=== PATIENT | female | born 1975 | race Caucasian/White ===

== ENCOUNTER 2017-12-29 19:01 | Observation (INO) ==
[2017-12-29] MEDS ORDERED: 0.9 % Sodium Chloride 1,000 ML IVC ONE (19:51)
[2017-12-29] MEDS ORDERED: Ondansetron 4 MG/2 ML VIAL IVP ONE (19:51)
[2017-12-29] MEDS ORDERED: *HR* FentaNYL (PF) 100 MCG/2 ML VIAL IVP ONE (19:52)
[2017-12-29 20:05] LABS: Bilirubin,Urine Negative (Negative); Blood,Urine Moderate (Negative); Clarity,Urine Cloudy (Clear); Color,Urine Yellow (Yellow); Glucose,Urine (UA) Normal (Normal); Ketones,Urine Negative (Negative); Leukocyte Esterase,Urine Large (Negative); Nitrite,Urine Positive (Negative); Protein,Urine 100 mg/dL (Neg-Trace); Specific Gravity,Urine 1.015 (1.010-1.025); Urobilinogen,Urine Normal (Normal)
[2017-12-29 20:07] LABS: Bacteria,Urine Moderate per hpf (None-Few); Hyaline Casts,Urine None Seen per lpf (None-Few); Squamous Epithelial Cell,Urine Many per lpf (None-Few); WBC,Urine TNTC per hpf (0-3)
[2017-12-29 20:22] LABS: Calcium Oxalate Crystals,Urine Present
--- NOTE | 2017-12-29 20:47 | Emergency Department Note ---
Disposition Clinical Impression: Kidney stones UTI (urinary tract infection) Qualifiers: Urinary tract infection type: site unspecified Hematuria presence: with hematuria Qualified Code(s): N39.0 - Urinary tract infection, site not specified ; R31.9 - Hematuria, unspecified Disposition: Admitted As Inpatient Condition: Fair Referrals: Kathy Robles, [employer] SERVICE ATTENDANT [Primary Care Provider] - Forms: ED Satisfaction Letter, Work/School Release Time of Disposition: 00:20 General Adult HPI - General Chief complaint: ED Abdominal Pain Stated complaint: "UTI, kidney stone", pain Time Seen by Provider: 12/29/17 19:30 Source: patient Limitations: no limitations Nursing Notes Reviewed: Yes Vital Signs Reviewed: Yes - History of Present Illness HPI Narrative: Patient is a 42-year-old female who presents to [facility] ED with a chief complaint of back pain. States it came on acutely around 6:30 this evening. She has had 2 month history of kidney stones. However because of her chronic condition of her hips and legs being calcified, they have not wanted to remove any of her stones. She follows with Dr. Tamez and was just seen in his office today. However at that time, she states her pain was controlled. Patient states the pain currently is in tolerable. Admits to nausea, no vomiting, no fever but has had chills. No chest pain or difficulty breathing. No problems with bowel movements. Patient has a chronic catheter for urine drainage. States Dr. Tamez wanted to start her on Bactrim to prevent her from getting a worsening urinary tract infection. Onset (ago): hour(s) Location: back Radiation: non-radiation Pain Severity: severe Pain Scale: 8 Quality: aching Consistency: intermittent Improves with: nothing Worsens with: nothing Associated symptoms: Reports: nausea/vomiting. Denies: chest pain, cough, fever /chills, headaches, shortness of breath Treatments Prior to Arrival: none - Related Data Home Medications Medication Instructions Recorded Confirmed Baclofen 20 mg PO TID 01/05/16 01/05/16 Famotidine [Pepcid] 20 mg PO DAILY PRN 01/05/16 01/05/16 FentaNYL PATCH [Duragesic] 100 mcg TD Q72H 01/05/16 01/05/16 Ferrous Sulfate [Iron] 325 mg PO BID 01/05/16 01/05/16 Gabapentin [Neurontin] 100 mg PO TID 01/05/16 01/05/16 HYDROmorphone [Dilaudid] 4 mg PO Q5H 01/05/16 01/05/16 LORazepam [Ativan] 1 mg PO QID PRN 01/05/16 01/05/16 Ondansetron [Zofran] 4 mg PO Q6H PRN 01/05/16 01/05/16 Paroxetine [Paxil] 30 mg PO DAILY 01/05/16 01/05/16 Tizanidine HCl [Zanaflex] 4 mg PO TID 01/05/16 01/05/16 Trospium Chloride 20 mg PO DAILY 01/05/16 01/05/16 Allergies Allergy/AdvReac Type Severity Reaction Status Date / Time ceftriaxone [From Rocephin] AdvReac Itching Verified 12/29/17 19:07 All systems ED: reviewed and negative except as stated. Past Medical History - Past Medical History Attestation: Yes The following information was validated with the patient. Source: patient Medical history: Reports: other Surgical history: Reports: other Psychiatric history: Reports: anxiety, depression - Social History Smoking Status: Never smoker Smokeless Tobacco Status: No Alcohol use: Reports: none Drug use: Reports: none Physical Exam - General Limitations: no limitations General appearance: alert - Head Head exam: atraumatic, normocephalic, normal inspection - Eye Eye exam: Present: EOMI - ENT ENT exam: normal exam, normal oropharynx, mucous membranes moist - Neck Neck exam: Present: normal inspection, full ROM, trachea midline - Chest Chest inspection: Present: normal inspection, symmetric chest wall rise - Respiratory Respiratory exam: Present: normal lung sounds bilaterally - Cardiovascular Cardiovascular exam: Present: regular rate, normal rhythm, normal heart sounds - Abdominal Exam Abdominal exam: Present: soft, Non-Tender. Absent: tenderness, distention, guarding, rebound, rigidity - Extremities Exam Extremities exam: Present: normal inspection, full ROM. Absent: tenderness, pedal edema - Back Exam Back exam: Present: tenderness - Neurological Exam Neurological exam: Present: alert - Psychiatric Psychiatric exam: Present: normal affect, normal mood - Skin Skin exam: Present: warm, dry, intact, normal color Course Course Narrative: Patient seen and examined. Suspect lower back pain secondary to renal colic. With her history of stones, we will go ahead and do a CT abdomen and pelvis as well as lab work and urine analysis. I discussed with the urologist Dr. Tamez who states patient has a very complicated case with her burden of stones. However due to her medical physical condition, it is difficult to do surgery on her. States if she is having intractable pain or if her lab work shows she is very sick, she can get her admitted and he will have interventional radiology place a nephrostomy tube tomorrow. - Reevaluation(s) Reevaluation #1: Patient's lab work shows a mild leukocytosis as well as signs of a possible urinary tract infection. We will cover her with some Levaquin. Dr. Tamez called the back to discuss the results of her CAT scan. States she has large stone burden near the renal pelvis area near the junction of the ureter and he suspects that this may be the cause of her renal colic. I discussed these findings with the patient and patient would like to be admitted due to the persistent intermittent pains. I discussed with the hospitalist Dr. Fuller who has accepted patient for admission. Time: 00:17 Vital Signs Temperature 98.4 F 12/29/17 19:08 Pulse Rate 75 12/29/17 19:08 Respiratory Rate 20 12/29/17 19:08 Blood Pressure 109/68 12/29/17 19:08 O2 Sat by Pulse Oximetry 94 12/29/17 19:08 Temperature 98.4 F 12/29/17 19:36 Pulse Rate 105 12/29/17 21:56 Respiratory Rate 16 12/29/17 21:56 Blood Pressure 118/73 12/29/17 21:56 O2 Sat by Pulse Oximetry 100 12/29/17 21:56 Oxygen Delivery Oxygen Delivery Room Air Medical Decision Making - Medical Records Medical records reviewed: Yes I reviewed the patient's medical records. - Lab Data Lab results reviewed: Yes I reviewed the patient's lab results. Result diagrams: 12/29/17 20:52 12/29/17 20:52 Lab Results 12/29/17 12/29/17 12/29/17 Range/Units 19:48 19:48 20:52 WBC 12.0 H (4.3-11.1) K/mcL RBC 3.45 L (3.82-4.97) M/mcL Hgb 9.9 L (11.5-15.4) g/dL Hct 29.6 L (35.3-44.9) % MCV 85.8 (83.0-100.0) fL MCH 28.7 (28.0-33.3) pg MCHC 33.4 (31.6-35.5) g/dL RDW 14.0 (11.5-14.5) % Plt Count 392 (140-400) K/mcL MPV 8.6 L (9.4-12.4) fL Immature Gran % 0.4 (0-4) % Seg Neutrophils % 81.7 % Lymphocytes % 12.6 % Monocytes % 3.7 % Eosinophils % 0.8 % Basophils % 0.8 % Neutrophils # 9.8 H (1.6-8.9) K/mcL Lymphocytes # 1.5 (0.6-4.6) K/mcL Monocytes # 0.4 (0.0-1.3) K/mcL Eosinophils # 0.1 (0.0-0.6) K/mcL Basophils # 0.1 (0.0-0.2) K/mcL Sodium (136-145) mEq/L Potassium (3.5-5.1) mEq/L Chloride (98-107) mEq/L Carbon Dioxide (23-29) mEq/L BUN (6-20) mg/dL Creatinine (0.60-1.20) mg/dL Est GFR ( Amer) (> 60) Est GFR (Non-Af Amer) (> 60) BUN/Creatinine Ratio (6-26) Glucose (70-105) mg/dL Calculated Osmolality (280-300) Lactic Acid (0.5-2.2) mmol/L Calcium (8.6-10.3) mg/dL Urine Color Yellow (Yellow) Urine Clarity Cloudy A (Clear) Urine pH 6.0 (5.0-8.0) pH Units Ur Specific [place] 1.015 (1.010-1.025) Urine Protein 100 H (Neg-Trace) mg/dL Urine Glucose (UA) Normal (Normal) mg/dL Urine Ketones Negative (Negative) mg/dL Urine Blood Moderate H (Negative) Urine Nitrite Positive A (Negative) Urine Bilirubin Negative (Negative) Urine Urobilinogen Normal (Normal) mg/dL Ur Leukocyte Esterase Large H (Negative) Urine Microscopic RBC 5-15 H (0-3) per hpf Urine Microscopic WBC TNTC H (0-3) per hpf Ur Squamous Epith Cells Many H (None-Few) per lpf Calcium Oxalate Crystal Present Urine Bacteria Moderate H (None-Few) per hpf Hyaline Casts None Seen (None-Few) per lpf Ur Culture Indicated? NO. A (NO) Urine Test Negative (Negative) 12/29/17 12/29/17 Range/Units 20:52 20:52 WBC (4.3-11.1) K/mcL RBC (3.82-4.97) M/mcL Hgb (11.5-15.4) g/dL Hct (35.3-44.9) % MCV (83.0-100.0) fL MCH (28.0-33.3) pg MCHC (31.6-35.5) g/dL RDW (11.5-14.5) % Plt Count (140-400) K/mcL MPV (9.4-12.4) fL Immature Gran % (0-4) % Seg Neutrophils % % Lymphocytes % % Monocytes % % Eosinophils % % Basophils % % Neutrophils # (1.6-8.9) K/mcL Lymphocytes # (0.6-4.6) K/mcL Monocytes # (0.0-1.3) K/mcL Eosinophils # (0.0-0.6) K/mcL Basophils # (0.0-0.2) K/mcL Sodium 137 (136-145) mEq/L Potassium 3.8 (3.5-5.1) mEq/L Chloride 103 (98-107) mEq/L Carbon Dioxide 25 (23-29) mEq/L BUN 19 (6-20) mg/dL Creatinine 0.57 L (0.60-1.20) mg/dL Est GFR ( Amer) > 60 (> 60) Est GFR (Non-Af Amer) > 60 (> 60) BUN/Creatinine Ratio 33 H (6-26) Glucose 147 H (70-105) mg/dL Calculated Osmolality 289 (280-300) Lactic Acid 1.8 (0.5-2.2) mmol/L Calcium 8.7 (8.6-10.3) mg/dL Urine Color (Yellow) Urine Clarity (Clear) Urine pH (5.0-8.0) pH Units Ur Specific [place] (1.010-1.025) Urine Protein (Neg-Trace) mg/dL Urine Glucose (UA) (Normal) mg/dL Urine Ketones (Negative) mg/dL Urine Blood (Negative) Urine Nitrite (Negative) Urine Bilirubin (Negative) Urine Urobilinogen (Normal) mg/dL Ur Leukocyte Esterase (Negative) Urine Microscopic RBC (0-3) per hpf Urine Microscopic WBC (0-3) per hpf Ur Squamous Epith Cells (None-Few) per lpf Calcium Oxalate Crystal Urine Bacteria (None-Few) per hpf Hyaline Casts (None-Few) per lpf Ur Culture Indicated? (NO) Urine Test (Negative) - Radiology Data Radiology results reviewed: Yes I reviewed the patient's radiology results. Abdomen/Pelvis CT 12/29/17 19:52 IMPRESSION: 1. Numerous calculi in the right renal collecting system, some which appear to have passed into the bladder; the appearance of the right renal collecting system is suspicious for staghorn calculus. 2. There is evidence of rectal prolapse. 3. Imaging features suspicious for the decubitus ulcer with chronic osteomyelitis of the sacrum, left ilium, and likely the right ilium. If it would alter clinical management, a dedicated pelvic MRI with and without contrast could be obtained. D/ / Dawson Pat / Dawson Pat Interpreting Provider: Dawson Pat
[2017-12-29 21:04] LABS: Basophils # 0.1 K/mcL (0.0-0.2); Basophils % 0.8 %; Eosinophils # 0.1 K/mcL (0.0-0.6); Eosinophils % 0.8 %; Hematocrit 29.6 % (35.3-44.9); Hemoglobin 9.9 g/dL (11.5-15.4); Immature Granulocytes % 0.4 % (0-4); Lymphocytes # 1.5 K/mcL (0.6-4.6); Lymphocytes % 12.6 %; Mean Corpuscular HGB Conc 33.4 g/dL (31.6-35.5); Mean Corpuscular Hemoglobin 28.7 pg (28.0-33.3); Mean Corpuscular Volume 85.8 fL (83.0-100.0); Mean Platelet Volume 8.6 fL (9.4-12.4); Monocytes # 0.4 K/mcL (0.0-1.3); Monocytes % 3.7 %; Neutrophils # 9.8 K/mcL (1.6-8.9); Platelet Count 392 K/mcL (140-400); Red Blood Count 3.45 M/mcL (3.82-4.97); Segmented Neutrophils % 81.7 %
[2017-12-29 21:18] LABS: BUN/Creatinine Ratio 33 (6-26); Blood Urea Nitrogen 19 mg/dL (6-20); Calcium 8.7 mg/dL (8.6-10.3); Carbon Dioxide 25 mEq/L (23-29); Chloride 103 mEq/L (98-107); Glucose 147 mg/dL (70-105); Osmolality,Calculated 289 (280-300); Potassium 3.8 mEq/L (3.5-5.1); Sodium 137 mEq/L (136-145); eGFR For Non-African Americans > 60 (> 60)
[2017-12-29] MEDS ORDERED: tiZANidine 4 MG TABLET PO STA (22:42)
[2017-12-29] MEDS ORDERED: Levofloxacin 750 MG/150 ML 750 MG/150 ML BAG IVPB ONE (22:56)
--- NOTE | 2017-12-29 23:27 | Emergency Department Note ---
Disposition Clinical Impression: Kidney stones, UTI (urinary tract infection) Disposition: Admitted As Inpatient Condition: Fair General Adult HPI - General Chief complaint: ED Abdominal Pain Stated complaint: "UTI, kidney stone", pain Time Seen by Provider: 12/29/17 19:30 Source: patient Limitations: no limitations Nursing Notes Reviewed: Yes Vital Signs Reviewed: Yes - History of Present Illness Pain Scale: 8 - Related Data Home Medications Medication Instructions Recorded Confirmed Baclofen 20 mg PO TID 01/05/16 01/05/16 Famotidine [Pepcid] 20 mg PO DAILY PRN 01/05/16 01/05/16 FentaNYL PATCH [Duragesic] 100 mcg TD Q72H 01/05/16 01/05/16 Ferrous Sulfate [Iron] 325 mg PO BID 01/05/16 01/05/16 Gabapentin [Neurontin] 100 mg PO TID 01/05/16 01/05/16 HYDROmorphone [Dilaudid] 4 mg PO Q5H 01/05/16 01/05/16 LORazepam [Ativan] 1 mg PO QID PRN 01/05/16 01/05/16 Ondansetron [Zofran] 4 mg PO Q6H PRN 01/05/16 01/05/16 Paroxetine [Paxil] 30 mg PO DAILY 01/05/16 01/05/16 Tizanidine HCl [Zanaflex] 4 mg PO TID 01/05/16 01/05/16 Trospium Chloride 20 mg PO DAILY 01/05/16 01/05/16 Allergies Allergy/AdvReac Type Severity Reaction Status Date / Time ceftriaxone [From Rocephin] AdvReac Itching Verified 12/29/17 19:07 Past Medical History - Past Medical History Medical history: Reports: other Surgical history: Reports: other Psychiatric history: Reports: anxiety, depression - Social History Smoking Status: Never smoker Smokeless Tobacco Status: No Alcohol use: Reports: none Drug use: Reports: none Physical Exam - General Limitations: no limitations General appearance: alert Course Vital Signs Temperature 98.4 F 12/29/17 19:08 Pulse Rate 75 12/29/17 19:08 Respiratory Rate 20 12/29/17 19:08 Blood Pressure 109/68 12/29/17 19:08 O2 Sat by Pulse Oximetry 94 12/29/17 19:08 Temperature 98.4 F 12/29/17 19:36 Pulse Rate 105 12/29/17 21:56 Respiratory Rate 16 12/29/17 21:56 Blood Pressure 118/73 12/29/17 21:56 O2 Sat by Pulse Oximetry 100 12/29/17 21:56 Oxygen Delivery Oxygen Delivery Room Air Medical Decision Making - Medical Records Medical records reviewed: Yes I reviewed the patient's medical records. - Lab Data Lab results reviewed: Yes I reviewed the patient's lab results. Result diagrams: 12/29/17 20:52 12/29/17 20:52 Lab Results 12/29/17 12/29/17 12/29/17 Range/Units 19:48 19:48 20:52 WBC 12.0 H (4.3-11.1) K/mcL RBC 3.45 L (3.82-4.97) M/mcL Hgb 9.9 L (11.5-15.4) g/dL Hct 29.6 L (35.3-44.9) % MCV 85.8 (83.0-100.0) fL MCH 28.7 (28.0-33.3) pg MCHC 33.4 (31.6-35.5) g/dL RDW 14.0 (11.5-14.5) % Plt Count 392 (140-400) K/mcL MPV 8.6 L (9.4-12.4) fL Immature Gran % 0.4 (0-4) % Seg Neutrophils % 81.7 % Lymphocytes % 12.6 % Monocytes % 3.7 % Eosinophils % 0.8 % Basophils % 0.8 % Neutrophils # 9.8 H (1.6-8.9) K/mcL Lymphocytes # 1.5 (0.6-4.6) K/mcL Monocytes # 0.4 (0.0-1.3) K/mcL Eosinophils # 0.1 (0.0-0.6) K/mcL Basophils # 0.1 (0.0-0.2) K/mcL Sodium (136-145) mEq/L Potassium (3.5-5.1) mEq/L Chloride (98-107) mEq/L Carbon Dioxide (23-29) mEq/L BUN (6-20) mg/dL Creatinine (0.60-1.20) mg/dL Est GFR ( Amer) (> 60) Est GFR (Non-Af Amer) (> 60) BUN/Creatinine Ratio (6-26) Glucose (70-105) mg/dL Calculated Osmolality (280-300) Lactic Acid (0.5-2.2) mmol/L Calcium (8.6-10.3) mg/dL Urine Color Yellow (Yellow) Urine Clarity Cloudy A (Clear) Urine pH 6.0 (5.0-8.0) pH Units Ur Specific [place] 1.015 (1.010-1.025) Urine Protein 100 H (Neg-Trace) mg/dL Urine Glucose (UA) Normal (Normal) mg/dL Urine Ketones Negative (Negative) mg/dL Urine Blood Moderate H (Negative) Urine Nitrite Positive A (Negative) Urine Bilirubin Negative (Negative) Urine Urobilinogen Normal (Normal) mg/dL Ur Leukocyte Esterase Large H (Negative) Urine Microscopic RBC 5-15 H (0-3) per hpf Urine Microscopic WBC TNTC H (0-3) per hpf Ur Squamous Epith Cells Many H (None-Few) per lpf Calcium Oxalate Crystal Present Urine Bacteria Moderate H (None-Few) per hpf Hyaline Casts None Seen (None-Few) per lpf Ur Culture Indicated? NO. A (NO) Urine Test Negative (Negative) 12/29/17 12/29/17 Range/Units 20:52 20:52 WBC (4.3-11.1) K/mcL RBC (3.82-4.97) M/mcL Hgb (11.5-15.4) g/dL Hct (35.3-44.9) % MCV (83.0-100.0) fL MCH (28.0-33.3) pg MCHC (31.6-35.5) g/dL RDW (11.5-14.5) % Plt Count (140-400) K/mcL MPV (9.4-12.4) fL Immature Gran % (0-4) % Seg Neutrophils % % Lymphocytes % % Monocytes % % Eosinophils % % Basophils % % Neutrophils # (1.6-8.9) K/mcL Lymphocytes # (0.6-4.6) K/mcL Monocytes # (0.0-1.3) K/mcL Eosinophils # (0.0-0.6) K/mcL Basophils # (0.0-0.2) K/mcL Sodium 137 (136-145) mEq/L Potassium 3.8 (3.5-5.1) mEq/L Chloride 103 (98-107) mEq/L Carbon Dioxide 25 (23-29) mEq/L BUN 19 (6-20) mg/dL Creatinine 0.57 L (0.60-1.20) mg/dL Est GFR ( Amer) > 60 (> 60) Est GFR (Non-Af Amer) > 60 (> 60) BUN/Creatinine Ratio 33 H (6-26) Glucose 147 H (70-105) mg/dL Calculated Osmolality 289 (280-300) Lactic Acid 1.8 (0.5-2.2) mmol/L Calcium 8.7 (8.6-10.3) mg/dL Urine Color (Yellow) Urine Clarity (Clear) Urine pH (5.0-8.0) pH Units Ur Specific [place] (1.010-1.025) Urine Protein (Neg-Trace) mg/dL Urine Glucose (UA) (Normal) mg/dL Urine Ketones (Negative) mg/dL Urine Blood (Negative) Urine Nitrite (Negative) Urine Bilirubin (Negative) Urine Urobilinogen (Normal) mg/dL Ur Leukocyte Esterase (Negative) Urine Microscopic RBC (0-3) per hpf Urine Microscopic WBC (0-3) per hpf Ur Squamous Epith Cells (None-Few) per lpf Calcium Oxalate Crystal Urine Bacteria (None-Few) per hpf Hyaline Casts (None-Few) per lpf Ur Culture Indicated? (NO) Urine Test (Negative) - Radiology Data Radiology results reviewed: Yes I reviewed the patient's radiology results. Abdomen/Pelvis CT 12/29/17 19:52 IMPRESSION: 1. Numerous calculi in the right renal collecting system, some which appear to have passed into the bladder; the appearance of the right renal collecting system is suspicious for staghorn calculus. 2. There is evidence of rectal prolapse. 3. Imaging features suspicious for the decubitus ulcer with chronic osteomyelitis of the sacrum, left ilium, and likely the right ilium. If it would alter clinical management, a dedicated pelvic MRI with and without contrast could be obtained. D/ / Dawson Pat / Dawson Pat Interpreting Provider: Dawson Pat Attestation Statement - Attestation Attestation: I, Cortes Ceja MD, personally evaluated this patient and discussed their management with the resident physician. I reviewed the resident's note and agree with the documented findings, medical decision making, and plan of care. 45-year-old female with history of recurrent kidney stones presents complaining of acute onset of right flank and right mid abdominal pain earlier this evening. Patient was just seen by her urologist, Dr. Tamez, earlier today but was not having pain at that time. She has a suprapubic catheter. Patient is bedfast with decubiti and has been treated for osteomyelitis of her coccyx and/or sacrum in the past. On examination patient is a well-developed well-nourished female in no acute distress. She is alert and oriented 3. There is no cyanosis or diaphoresis. Breath sounds are clear and equal bilaterally. Heart regular rate and rhythm. Abdomen is soft with normal bowel sounds. There is mild right mid abdominal tenderness. Labs reviewed. CT shows increased use stones in the right collecting system with some irregular stones which have passed into the bladder. No evidence of hydronephrosis or obstruction. Dr. Tay discussed with the urologist long wall mining machine tender, Dr. Tamez. The hospitalist, Dr. Fuller, was consulted and accepted admission of the patient.
[2017-12-30] MEDS ORDERED: Naloxone 0.4 MG/ML INJ IVP PRN (05:05)
[2017-12-30] MEDS ORDERED: OXYCODONE Oral CONC 10 MG/0.5 ML ORAL.SYG SL PRN (05:07)
[2017-12-30 06:24] LABS: INR 1.2
[2017-12-30 06:42] LABS: Hematocrit 29.2 % (35.3-44.9); Hemoglobin 9.4 g/dL (11.5-15.4); Mean Corpuscular HGB Conc 32.2 g/dL (31.6-35.5); Mean Corpuscular Hemoglobin 28.5 pg (28.0-33.3); Mean Corpuscular Volume 88.5 fL (83.0-100.0); Mean Platelet Volume 8.7 fL (9.4-12.4); Platelet Count 378 K/mcL (140-400); Red Cell Distribution Width 14.1 % (11.5-14.5)
--- NOTE | 2017-12-30 06:59 | Urology - Consult Note ---
Date of Encounter: 12/30/17 Time of Encounter: 06:57 - Assessment and Plan (1) Kidney stones Current Visit: Yes Status: Acute Assessment and plan: I personally reviewed the CT scan which reveals a large volume of kidney stones on the right side. There is no significant hydronephrosis. The stones will require a PCNL in the future. It is possible the stones are causing intermittent severe right flank pain but I told the patient that her pain could also be from a nonurogoic source. I feel the best course of action is to have interventional radiology place a nephrostomy tube today as it will be required for the future percutaneous nephrolithotomy. This surgery will not be performed during this hospitalization. I recommend following the urine culture. Continuing antibiotics and changing to culture specific antibiotics when available. I placed an order for interventional radiology to place a nephrostomy tube today. In addition she has 2 large bladder stones which will require surgical management at the time of the percutaneous nephrolithotomy. Urology CN:HPI Consult date: 12/30/17 Reason for consult Urology: Other History of present illness: pt well known to the urology service. CT scan planned to stage stone disease for upcoming PCNL. states severe right flank pain requiring admission. no fever. Past Med Surg Social Fam HX - Past Medical History Medical history: other Additional medical history: paralyzed Psychiatric history: anxiety, depression - Past Surgical History Surgical History: other Additional surgical history: back surgeries, left femur repair, left patella removal, hip surgery, myocutaneous flap repair left ischium and coccyx - Social History Smoking Status: Never smoker Smokeless Tobacco Status: No Alcohol use: none Drug use: none - Family History Mother Hx Family Endocrine Disorder: Yes (DM) Father Living Status: Still Living Hx Family Cardiac Disorders: Yes (QUADRUPLE BIPASS, HTN) Hx Family Endocrine Disorder: Yes (DM) Medications and Allergies Baclofen 20 mg PO TID 01/05/16 [History] Famotidine [Pepcid] 20 mg PO DAILY PRN 01/05/16 [History] FentaNYL PATCH [Duragesic] 100 mcg TD Q72H 01/05/16 [History] Ferrous Sulfate [Iron] 325 mg PO BID 01/05/16 [History] Gabapentin [Neurontin] 100 mg PO TID 01/05/16 [History] HYDROmorphone [Dilaudid] 4 mg PO Q5H 01/05/16 [History] LORazepam [Ativan] 1 mg PO QID PRN 01/05/16 [History] Ondansetron [Zofran] 4 mg PO Q6H PRN 01/05/16 [History] Paroxetine [Paxil] 30 mg PO DAILY 01/05/16 [History] Tizanidine HCl [Zanaflex] 4 mg PO TID 01/05/16 [History] Trospium Chloride 20 mg PO DAILY 01/05/16 [History] 3 Allergy/AdvReac Type Severity Reaction Status Date / Time ceftriaxone [From Rocephin] AdvReac Itching Verified 12/29/17 19:07 Review of Systems - Constitutional no chills, no fever(s) - EENT Nose, mouth and throat: no dizziness - Cardiovascular no chest pain - Respiratory no cough - Gastrointestinal abdominal pain - Genitourinary Genitourinary: flank pain - Musculoskeletal back pain - Integumentary no erythema - Neurological no confusion - Psychiatric no anxiety - Hematologic/Lymphatic no easy bleeding - Allergic/Immunologic no throat swelling Exam Initial Vital Signs Temp Pulse Resp BP Pulse Ox 98.4 F 75 20 109/68 94 12/29/17 19:08 12/29/17 19:08 12/29/17 19:08 12/29/17 19:08 12/29/17 19:08 - General physical appearance Present: no distress - Eyes Present: PERRL - ENT Present: normal nares - Neck Present: no masses - Respiratory Present: normal respiratory effort - Cardiovascular Cardiovascular exam IM: RRR - Abdomen Abdomen: Present: soft, suprapubic tenderness (SPT in place. ) - Additional Findings fixed LE. parapelgic. urine clear Urology Results - Labs 12/30/17 05:31 12/29/17 20:52 Abnormal lab results RBC 3.30 M/mcL (3.82-4.97) L 12/30/17 05:31 Hgb 9.4 g/dL (11.5-15.4) L 12/30/17 05:31 Hct 29.2 % (35.3-44.9) L 12/30/17 05:31 MPV 8.7 fL (9.4-12.4) L 12/30/17 05:31 Neutrophils # 9.8 K/mcL (1.6-8.9) H 12/29/17 20:52 PT 13.0 Seconds (9.4-12.1) H 12/30/17 06:09 Creatinine 0.57 mg/dL (0.60-1.20) L 12/29/17 20:52 BUN/Creatinine Ratio 33 (6-26) H 12/29/17 20:52 Glucose 147 mg/dL (70-105) H 12/29/17 20:52 Urine Clarity Cloudy (Clear) A 12/29/17 19:48 Urine Protein 100 mg/dL (Neg-Trace) H 12/29/17 19:48 Urine Blood Moderate (Negative) H 12/29/17 19:48 Urine Nitrite Positive (Negative) A 12/29/17 19:48 Ur Leukocyte Esterase Large (Negative) H 12/29/17 19:48 Urine Microscopic RBC 5-15 per hpf (0-3) H 12/29/17 19:48 Urine Microscopic WBC TNTC per hpf (0-3) H 12/29/17 19:48 Ur Squamous Epith Cells Many per lpf (None-Few) H 12/29/17 19:48 Urine Bacteria Moderate per hpf (None-Few) H 12/29/17 19:48 Ur Culture Indicated? NO. (NO) A 12/29/17 19:48 All other labs normal. Consult Discharge Plan - Plan Referrals: Kathy Robles, [employer] [Primary Care Provider] -
[2017-12-30 07:06] LABS: BUN/Creatinine Ratio 30 (6-26); Blood Urea Nitrogen 16 mg/dL (6-20); Calcium 8.5 mg/dL (8.6-10.3); Carbon Dioxide 27 mEq/L (23-29); Chloride 106 mEq/L (98-107); Glucose 98 mg/dL (70-105); Osmolality,Calculated 289 (280-300); Potassium 3.8 mEq/L (3.5-5.1); Sodium 139 mEq/L (136-145); eGFR For Non-African Americans > 60 (> 60)
--- NOTE | 2017-12-30 07:53 | Internal Med History&Physical ---
Date of Encounter: 12/30/17 Time of Encounter: 03:45 Internal Medicine - H&P: HPI Chief complaint: UTI, kidney stones Admitted From: Home Plans for Post Hospital Care: Home History of present illness: Ms. Live is a 42 year old female Patient presented to the ER for back pain that started around 6pm the evening of admission. She had been treated at the hospital in [place] previously, discharged, then followed up with urology for further management. Earlier today she was at the urology office and pain was controlled. In the evening the pain increased and it was decided that she be admitted to the hospital for continued management of her pain, UTI and kidney stones. In the ER, CT showed large stone burden with numerous calculi in the right renal collecting system with some in the bladder. WBCs were elevated at 12.0, but vital signs were stable. Dr. Tamez was called from the ER and indicated that due to her chronic contracted posturing, it is difficult to do surgery on her. Possible plan for nephrostomy tube in the morning. Upon my exam, patient is resting comfortably in the bed, no acute distress. She states that she still has back pain, but this is a chronic problem for her. Pain does not radiate, and is achy in quality. Past Med Surg Social Fam HX - Past Medical History Medical history: other Additional medical history: paralyzed Psychiatric history: anxiety, depression - Past Surgical History Surgical History: other Additional surgical history: back surgeries, left femur repair, left patella removal, hip surgery, myocutaneous flap repair left ischium and coccyx - Social History Smoking Status: Never smoker Smokeless Tobacco Status: No Alcohol use: none Drug use: none - Family History Mother Hx Family Endocrine Disorder: Yes (DM) Father Living Status: Still Living Hx Family Cardiac Disorders: Yes (QUADRUPLE BIPASS, HTN) Hx Family Endocrine Disorder: Yes (DM) Internal Medicine - H&P: Meds Baclofen 20 mg PO TID 01/05/16 [History] Famotidine [Pepcid] 20 mg PO DAILY PRN 01/05/16 [History] FentaNYL PATCH [Duragesic] 100 mcg TD Q72H 01/05/16 [History] Ferrous Sulfate [Iron] 325 mg PO BID 01/05/16 [History] Gabapentin [Neurontin] 100 mg PO TID 08/22/16 [History] HYDROmorphone [Dilaudid] 4 mg PO Q5H 01/05/16 [History] LORazepam [Ativan] 1 mg PO QID PRN 01/05/16 [History] Ondansetron [Zofran] 4 mg PO Q6H PRN 01/05/16 [History] Paroxetine [Paxil] 30 mg PO DAILY 01/05/16 [History] Tizanidine HCl [Zanaflex] 4 mg PO TID 01/05/16 [History] Trospium Chloride 20 mg PO DAILY 01/05/16 [History] 3 Allergy/AdvReac Type Severity Reaction Status Date / Time ceftriaxone [From Rocephin] AdvReac Itching Verified 12/29/17 19:07 All Systems PM: A 10-system review of systems was performed and is negative for pertinent findings except as documented above in the HPI. - Constitutional Vitals: Temp Pulse Resp BP Pulse Ox 98.6 F 87 18 106/64 97 12/30/17 06:40 12/30/17 06:40 12/30/17 06:40 12/30/17 06:40 12/30/17 06:40 General appearance: Present: cooperative, A&O X 3, pleasant, no acute distress, answers questions appropriately - Head Head exam: Present: normal inspection - Eye Eye exam: Present: EOMI, normal appearance - Respiratory Respiratory exam: Present: CTAB. Absent: respiratory distress, wheezes - Cardiovascular Cardiovascular exam: Present: RRR. Absent: diastolic murmur, systolic murmur - GI/Abdominal GI/Abdominal exam: Present: normal bowel sounds, soft. Absent: tenderness - Extremities Exam Extremities exam: Present: warm. Absent: tenderness, radial pulses palpable and symmetrical Additional comments: Patient paralyzed from waist down, can not feel legs. Chronic flexion at the waist - Neurological Exam Neurological exam: Present: motor sensory deficit, strengths equal and symetr throughout. Absent: facial droop, speech deficit - Skin Skin exam: Present: dry, normal color, warm Internal Med - H&P Results - Labs CBC & Chem 7: 12/30/17 05:31 12/30/17 05:31 Labs: Short CBC 12/30/17 Range/Units 05:31 WBC 8.7 (4.3-11.1) K/mcL Hgb 9.4 L (11.5-15.4) g/dL Hct 29.2 L (35.3-44.9) % Plt Count 378 (140-400) K/mcL BMP 12/30/17 05:31 Sodium 139 Potassium 3.8 Chloride 106 Carbon Dioxide 27 BUN 16 Creatinine 0.53 L Glucose 98 Calcium 8.5 L - Assessment and plan (1) UTI (urinary tract infection) Current Visit: Yes Status: Acute Assessment and plan: Patient's UA showed moderate blood, positive nitrites, large LE, and moderate bacteria. Started on Levaquin in ER. Urology consulted due to stone burden Continue antibiotics. Follow urology recommendations. Appreciate their input. Qualifiers: Urinary tract infection type: site unspecified Hematuria presence: with hematuria Qualified Code(s): N39.0 - Urinary tract infection, site not specified; R31.9 - Hematuria, unspecified (2) Kidney stones Current Visit: Yes Status: Acute Assessment and plan: Patient has large stone burden. Urology recommends nephrostomy tube. Urology consulted, follow recommendations. Pain medications as per home meds, resume once confirmed. - Time Spent With Patient Total time spent is greater than 50% in coordination of care (as documented) at patient's floor/unit and/or counseling patient: Greater than 35 minutes
[2017-12-30] MEDS: Levofloxacin 750 MG/150 ML 750 MG/150 ML BAG IVPB SCH (09:26)
[2017-12-30] MEDS ORDERED: *HR* FentaNYL PATCH 100 MCG PATCH TD SCH (11:30)
[2017-12-30] MEDS ORDERED: 0.9 % Sodium Chloride 500 ML ONE ×2 (14:03→14:19)
[2017-12-30] MEDS ORDERED: *HR* Midazolam HCl 2 MG/2 ML VIAL IVP ONE (14:18)
[2017-12-30] MEDS ORDERED: *HR* FentaNYL (PF) 100 MCG/2 ML VIAL IVP ONE (14:18)
[2017-12-30] MEDS ORDERED: *HR* Midazolam HCl 2 MG/2 ML VIAL ONE (14:23)
[2017-12-30] MEDS ORDERED: *HR* FentaNYL (PF) 100 MCG/2 ML VIAL ONE (14:23)
[2017-12-30] MEDS ORDERED: Ondansetron ODT 4 MG TAB.RAPDIS PO PRN (18:44)
[2017-12-30] MEDS ORDERED: Famotidine 20 MG TABLET PO PRN (18:44)
[2017-12-30] MEDS ORDERED: FENTANYL 100 MCG TD SCH (18:45)
--- NOTE | 2017-12-30 18:50 | Event Note ---
Date of Encounter: 12/30/17 Time of Encounter: 11:00 Patient seen by a nocturnalist earlier this morning and also by myself Urology consult with plans for nephrostomy tube by interventional radiology today. Will continue IV antibiotics for UTI.
[2017-12-30] MEDS: Baclofen 10 MG TABLET PO SCH (20:24)
[2017-12-30] MEDS: Gabapentin 100 MG CAPSULE PO SCH (20:24)
[2017-12-31 08:00] VITALS: BP 104/67
[2017-12-31] MEDS ORDERED: DARIFENACIN HYDROBROMIDE 15 MG PO SCH (09:00)
--- NOTE | 2017-12-31 09:20 | Urology Progress Note ---
Date of Encounter: 12/31/17 Time of Encounter: 09:19 - Assessment and Plan (1) Kidney stones Current Visit: Yes Status: Acute Assessment and plan: Status post nephrostomy tube. Patient stable this morning. Okay to discharge from urology standpoint. My office will contact patient to schedule outpatient percutaneous nephrolithotomy and removal of bladder stones. Progress Note Narrative: Patient doing well after nephrostomy tube placement. Objective Initial Vital Signs Temp Pulse Resp BP Pulse Ox 98.4 F 75 20 109/68 94 12/29/17 19:08 12/29/17 19:08 12/29/17 19:08 12/29/17 19:08 12/29/17 19:08 - Additional Exam Urine and SP tube and nephrostomy tube clear - Labs 12/30/17 05:31 12/30/17 05:31 Consult Discharge Plan - Plan Referrals: Kathy Robles, JACKELYN [Primary Care Provider] -
[2017-12-31] MEDS: Gabapentin 100 MG CAPSULE PO SCH (09:54)
[2017-12-31] MEDS: Baclofen 10 MG TABLET PO SCH (09:54)
[2017-12-31] MEDS: Levofloxacin 750 MG/150 ML 750 MG/150 ML BAG IVPB SCH (09:55)
--- NOTE | 2017-12-31 13:12 | Discharge Summary ---
- NOTES TO OUTPATIENT PROVIDER Notes to Outpatient Provider: Patient to follow-up with urology for percutaneous nephrolithotomy and removal of bladder stones. Orders not resulted at time of discharge: Pending orders 12/30/17 CT guided nephrostomy [CT] Routine 12/30/17 05:52 IR nephrostomy [IR] Routine Date of Encounter: 12/31/17 Time of Encounter: 11:00 Hospital course: Patient is a 42-year-old female presented to the ER due to back pain. In the ER patient was found to have UTI with nephrolithiasis a urology was consulted with recommendations for nephrostomy tube placement. During patients hospital stay, nephrostomy tube was placed by interventional radiologist and patient will follow-up with urology as an outpatient for percutaneous nephrolithotomy and removal of bladder stones. - Time Spent with Patient Total time spent providing and/or coordinating discharge services: Less than 30 minutes - Discharge Medications Home Medications: Baclofen 20 mg PO BID 01/05/16 [History] Famotidine [Pepcid] 20 mg PO DAILY PRN 01/05/16 [History] FentaNYL PATCH [Duragesic] 100 mcg TD Q72H 01/05/16 [History] Ferrous Sulfate [Iron] 975 mg PO DAILY 01/05/16 [History] Gabapentin [Neurontin] 100 mg PO TID 01/05/16 [History] Ondansetron [Zofran] 4 mg PO Q6H PRN 01/05/16 [History] Darifenacin Hydrobromide [Enablex] 15 mg PO DAILY 12/30/17 [History] Docusate Sodium [Dok] 100 mg PO DAILY 12/30/17 [History] Paroxetine HCl [Paxil] 40 mg PO DAILY 12/30/17 [History] Sulfamethoxazole/Trimeth DS [Bactrim Ds] 1 each PO BID 12/30/17 [History] Allergies/Adverse Reactions: 3 Allergy/AdvReac Type Severity Reaction Status Date / Time ceftriaxone [From Rocephin] AdvReac Itching Verified 12/29/17 19:07 Date of admission: 12/30/17 00:35 Primary care physician: Kathy Robles CNP Consults: 12/30/17 10:41 Consult to Interventional Radiology [CONS] Routine Consulting Provider: Radiology Interventional Cols Reason for Consult: right nephrsotomy tube Time Notified: 10:42 Call Completed: Yes - Constitutional Vitals: Temp Pulse Resp BP Pulse Ox 98.5 F 70 16 104/67 96 12/31/17 07:58 12/31/17 07:58 12/31/17 07:58 12/31/17 07:58 12/31/17 07:58 General appearance: Present: cooperative, A&O X 3, pleasant, no acute distress, answers questions appropriately - Cardiovascular Cardiovascular exam: Present: RRR, +S1, +S2. Absent: diastolic murmur, gallop, rubs, systolic murmur - Patient Status Disposition: Home, Self-Care Condition: Fair - Discharge Instructions Instructions: Urinary Tract Infection in Women (GEN) Follow Up With: Kathy Robles CNP [Primary Care Provider] -
== END 2017-12-31 17:25 | disposition home or self-care (01) ==
LOC: 3NENU 19:01 → EMEROOARM 19:01 → SUATTDRO 12-30 00:35 → 3NENU 12-30 01:05
PROVIDERS: ADMIT Family Medicine; ATTEND Hospitalist

== ENCOUNTER 2019-05-27 22:49 | Inpatient (IN) ==
[2019-05-28 00:51] LABS: Bilirubin,Urine Negative (Negative); Blood,Urine Moderate (Negative); Clarity,Urine Cloudy (Clear); Color,Urine Yellow (Yellow); Glucose,Urine (UA) Normal (Normal); Ketones,Urine Negative (Negative); Leukocyte Esterase,Urine Large (Negative); Nitrite,Urine Positive (Negative); Protein,Urine 30 mg/dL (Neg-Trace); Specific Gravity,Urine 1.011 (1.010-1.025); Urobilinogen,Urine Normal (Normal)
[2019-05-28 00:53] LABS: Bacteria,Urine None Seen per hpf (None-Few); Hyaline Casts,Urine None Seen per lpf (None-Few); RBC,Urine 0-3 per hpf (0-3); Squamous Epithelial Cell,Urine Many per lpf (None-Few); WBC,Urine 15-30 per hpf (0-3)
[2019-05-28] MEDS ORDERED: 0.9 % Sodium Chloride 1,000 ML IVC ONE (01:11)
[2019-05-28] MEDS ORDERED: *HR* LORazepam 0.5 MG TABLET PO ONE ×2 (01:56→05:30)
[2019-05-28 02:24] LABS: Basophils # 0.1 K/mcL (0.0-0.2); Basophils % 0.8 %; Eosinophils # 0.1 K/mcL (0.0-0.6); Eosinophils % 0.5 %; Hematocrit 32.4 % (35.3-44.9); Hemoglobin 9.9 g/dL (11.5-15.4); Immature Granulocytes % 0.4 % (0-4); Lymphocytes # 1.8 K/mcL (0.6-4.6); Lymphocytes % 10.4 %; Mean Corpuscular HGB Conc 30.6 g/dL (31.6-35.5); Mean Corpuscular Hemoglobin 26.3 pg (28.0-33.3); Mean Corpuscular Volume 86.2 fL (83.0-100.0); Mean Platelet Volume 8.8 fL (9.4-12.4); Monocytes # 0.6 K/mcL (0.0-1.3); Monocytes % 3.4 %; Neutrophils # 14.5 K/mcL (1.6-8.9); Platelet Count 650 K/mcL (140-400); Red Blood Count 3.76 M/mcL (3.82-4.97); Red Cell Distribution Width 16.7 % (11.5-14.5); Segmented Neutrophils % 84.5 %; White Blood Count 17.2 K/mcL (4.3-11.1)
[2019-05-28 02:47] LABS: Alanine Aminotransferase 12 Units/L (7-52); Alkaline Phosphatase 60 Units/L (34-104); Amylase 70 Units/L (29-103); Aspartate Amino Transferase 14 Units/L (13-39); BUN/Creatinine Ratio 49 (6-26); Bilirubin,Indirect 0.1 mg/dL (0.0-1.0); Bilirubin,Total 0.1 mg/dL (0.3-1.0); Blood Urea Nitrogen 31 mg/dL (6-20); Calcium 8.9 mg/dL (8.6-10.3); Carbon Dioxide 23 mEq/L (23-29); Chloride 103 mEq/L (98-107); Globulin 3.9 g/dL (2.4-3.5); Glucose 107 mg/dL (70-105); Lipase 32 Units/L (11-82); Osmolality,Calculated 285 (280-300); Potassium 4.2 mEq/L (3.5-5.1); Sodium 134 mEq/L (136-145); Total Protein 7.9 g/dL (6.4-8.9); Troponin I 0.03 ng/mL (< 0.04); eGFR For African Americans > 60 (> 60); eGFR For Non-African Americans > 60 (> 60)
[2019-05-28] MEDS ORDERED: levoFLOXacin 750 MG/150 ML 750 MG/150 ML BAG IVPB ONE (02:51)
[2019-05-28] MEDS ORDERED: Acetaminophen 325 MG TABLET PO PRN (04:42)
[2019-05-28] MEDS ORDERED: Naloxone 0.4 MG/ML INJ IVP PRN (04:42)
[2019-05-28] MEDS ORDERED: Mag Hydrox/Al Hydrox/Simeth 30 ML UDC PO PRN (04:42)
[2019-05-28] MEDS ORDERED: tiZANidine 4 MG TABLET PO PRN (04:51)
[2019-05-28] MEDS ORDERED: *HR* LORazepam 1 MG TABLET PO PRN (04:51)
[2019-05-28] MEDS ORDERED: Acetaminophen/Aspirin/Caffeine TABLET PO PRN (04:51)
[2019-05-28] MEDS ORDERED: ALPRAZolam 0.25 MG TABLET PO PRN (05:19)
[2019-05-28] MEDS ORDERED: *HR* LORazepam 0.5 MG TABLET PO PRN ×2 (05:30→10:13)
[2019-05-28] MEDS ORDERED: ALPRAZolam 0.25 MG TABLET PO ONE (05:30)
[2019-05-28] MEDS ORDERED: *HR* FentaNYL PATCH 75 MCG PATCH TD SCH ×2 (06:00→21:00)
[2019-05-28] MEDS ORDERED: Famotidine 20 MG TABLET PO PRN (08:07)
[2019-05-28] MEDS: 0.9 % Sodium Chloride 1,000 ML IVC SCH ×2 (08:37→16:37)
[2019-05-28] MEDS ORDERED: Gabapentin 100 MG CAPSULE PO SCH (09:00)
[2019-05-28] MEDS ORDERED: Baclofen 10 MG TABLET PO SCH (09:00)
[2019-05-28] MEDS: Gabapentin 100 MG CAPSULE PO SCH ×2 (16:00→21:15)
[2019-05-28] MEDS: Baclofen 10 MG TABLET PO PRN (16:05)
[2019-05-28] MEDS ORDERED: Gentamicin 300 MG in 0.9 % Sodium Chloride 100 ML IVPB SCH ×2 (17:00→18:00)
[2019-05-28] MEDS: *HR* Heparin 5,000 UNIT/ML VIAL SQ SCH (18:34)
[2019-05-29 05:08] LABS: Basophils # 0.1 K/mcL (0.0-0.2); Basophils % 0.9 %; Eosinophils # 0.3 K/mcL (0.0-0.6); Eosinophils % 3.7 %; Hematocrit 31.1 % (35.3-44.9); Hemoglobin 9.6 g/dL (11.5-15.4); Immature Granulocytes % 0.3 % (0-4); Lymphocytes # 1.5 K/mcL (0.6-4.6); Lymphocytes % 22.6 %; Mean Corpuscular HGB Conc 30.9 g/dL (31.6-35.5); Mean Corpuscular Hemoglobin 26.2 pg (28.0-33.3); Monocytes # 0.3 K/mcL (0.0-1.3); Monocytes % 4.5 %; Neutrophils # 4.6 K/mcL (1.6-8.9); Nucleated Red Blood Cells 0.3 /100 WBC (0); Platelet Count 422 K/mcL (140-400); Red Blood Count 3.66 M/mcL (3.82-4.97); Red Cell Distribution Width 17.2 % (11.5-14.5)
[2019-05-29 05:12] LABS: White Blood Count 6.7 K/mcL (4.3-11.1)
[2019-05-29 05:40] LABS: BUN/Creatinine Ratio 31 (6-26); Blood Urea Nitrogen 17 mg/dL (6-20); Carbon Dioxide 19 mEq/L (23-29); Chloride 112 mEq/L (98-107); Glucose 91 mg/dL (70-105); Osmolality,Calculated 289 (280-300); Potassium 4.2 mEq/L (3.5-5.1); Sodium 139 mEq/L (136-145); eGFR For African Americans > 60 (> 60); eGFR For Non-African Americans > 60 (> 60)
[2019-05-29] MEDS: *HR* Heparin 5,000 UNIT/ML VIAL SQ SCH ×2 (07:19→17:08)
[2019-05-29] MEDS ORDERED: Aminoglycoside Consult 1 EACH MC ONE (07:50)
[2019-05-29] MEDS ORDERED: levoFLOXacin 750 MG/150 ML 750 MG/150 ML BAG IVPB SCH (09:00)
[2019-05-29] MEDS: Gabapentin 100 MG CAPSULE PO SCH ×3 (10:03→19:52)
[2019-05-29] MEDS ORDERED: Piperacillin/Tazobactam 3.375 GM in 0.9 % Sodium Chloride Mini Bag 100 ML IVPB SCH (16:00)
[2019-05-29] MEDS: Cefepime HCl 2,000 MG in 0.9 % Sodium Chloride Mini Bag 100 ML IVPB SCH (18:07)
[2019-05-29] MEDS: Baclofen 10 MG TABLET PO PRN (20:07)
[2019-05-30] MEDS: Cefepime HCl 2,000 MG in 0.9 % Sodium Chloride Mini Bag 100 ML IVPB SCH ×2 (06:21→14:36)
[2019-05-30] MEDS: *HR* Heparin 5,000 UNIT/ML VIAL SQ SCH (06:31)
[2019-05-30 06:48] LABS: Basophils # 0.1 K/mcL (0.0-0.2); Basophils % 1.2 %; Eosinophils # 0.3 K/mcL (0.0-0.6); Eosinophils % 4.3 %; Hematocrit 31.7 % (35.3-44.9); Hemoglobin 9.6 g/dL (11.5-15.4); Immature Granulocytes % 0.1 % (0-4); Lymphocytes # 0.6 K/mcL (0.6-4.6); Lymphocytes % 9.3 %; Mean Corpuscular HGB Conc 30.3 g/dL (31.6-35.5); Mean Corpuscular Hemoglobin 26.4 pg (28.0-33.3); Mean Corpuscular Volume 87.3 fL (83.0-100.0); Mean Platelet Volume 8.9 fL (9.4-12.4); Monocytes # 0.3 K/mcL (0.0-1.3); Neutrophils # 5.5 K/mcL (1.6-8.9); Platelet Count 407 K/mcL (140-400); Red Blood Count 3.63 M/mcL (3.82-4.97); Red Cell Distribution Width 17.3 % (11.5-14.5); Segmented Neutrophils % 81.1 %; White Blood Count 6.8 K/mcL (4.3-11.1)
[2019-05-30 07:07] LABS: BUN/Creatinine Ratio 34 (6-26); Blood Urea Nitrogen 19 mg/dL (6-20); Calcium 8.7 mg/dL (8.6-10.3); Carbon Dioxide 26 mEq/L (23-29); Chloride 106 mEq/L (98-107); Glucose 94 mg/dL (70-105); Osmolality,Calculated 290 (280-300); Potassium 4.8 mEq/L (3.5-5.1); Sodium 139 mEq/L (136-145); eGFR For African Americans > 60 (> 60); eGFR For Non-African Americans > 60 (> 60)
[2019-05-30] MEDS: Gabapentin 100 MG CAPSULE PO SCH ×2 (08:40→14:13)
[2019-05-30] MEDS: Baclofen 10 MG TABLET PO PRN (08:45)
[2019-05-30 10:14] VITALS: BP 109/75
[2019-05-30] MEDS ORDERED: Gentamicin 300 MG in 0.9 % Sodium Chloride 100 ML IVPB SCH (18:00)
== END 2019-05-30 16:03 | disposition home health service (06) | DRG 466 ==
LOC: 3ANU 22:49 → EMEROOARM 22:49 → SUATTDRO 05-28 04:45 → 3ANU 05-28 05:05
PROVIDERS: ADMIT Family Medicine; ATTEND Internal Medicine

== ENCOUNTER 2019-12-05 07:07 | Inpatient (IN) ==
[2019-12-05] MEDS ORDERED: *HR* HYDROcodone/Acet 5/325 mg TABLET PO PRN (10:54)
[2019-12-05] MEDS ORDERED: Ondansetron 4 MG/2 ML VIAL IVP PRN (10:54)
[2019-12-05] MEDS ORDERED: Naloxone 0.4 MG/ML INJ IVP PRN (10:54)
[2019-12-05] MEDS ORDERED: 0.9 % Sodium Chloride 1,000 ML IVC SCH (11:00)
[2019-12-05] MEDS ORDERED: Cefepime HCl 1,000 MG in Water for inj. (sterile) 10 ML IVP SCH (11:00)
[2019-12-05] MEDS ORDERED: NON-FORMULARY MEDICATION 1 EACH EACH (Ondansetron Hcl [Zofran] 4 MG) PO PRN (11:03)
[2019-12-05] MEDS ORDERED: *HR* LORazepam 0.5 MG TABLET PO PRN (11:03)
[2019-12-05] MEDS ORDERED: tiZANidine 4 MG TABLET PO PRN (11:03)
[2019-12-05] MEDS: Gabapentin 300 MG CAPSULE PO SCH ×3 (11:45→20:34)
[2019-12-05 12:11] LABS: Basophils % 0.1 %; Eosinophils # 0.1 K/mcL (0.0-0.6); Eosinophils % 0.7 %; Hemoglobin 9.7 g/dL (11.5-15.4); Immature Granulocytes % 0.3 % (0-4); Lymphocytes # 1.2 K/mcL (0.6-4.6); Lymphocytes % 17.1 %; Mean Corpuscular HGB Conc 31.3 g/dL (31.6-35.5); Mean Corpuscular Hemoglobin 28.9 pg (28.0-33.3); Mean Corpuscular Volume 92.3 fL (83.0-100.0); Mean Platelet Volume 8.7 fL (9.4-12.4); Monocytes # 0.3 K/mcL (0.0-1.3); Monocytes % 3.6 %; Neutrophils # 5.4 K/mcL (1.6-8.9); Platelet Count 409 K/mcL (140-400); Red Blood Count 3.36 M/mcL (3.82-4.97); Red Cell Distribution Width 14.6 % (11.5-14.5); Segmented Neutrophils % 78.2 %; White Blood Count 6.9 K/mcL (4.3-11.1)
[2019-12-05 12:13] LABS: INR 1.3; Prothrombin Time 14.3 Seconds (9.4-12.1)
[2019-12-05 12:15] LABS: Activated Partial Thrombo Time 34.8 Seconds (26.0-36.0)
[2019-12-05 12:45] LABS: Alanine Aminotransferase 8 Units/L (7-52); Albumin 3.4 g/dL (3.5-5.7); Albumin/Globulin Ratio 0.9 (1.1-2.2); Alkaline Phosphatase 92 Units/L (34-104); Aspartate Amino Transferase 9 Units/L (13-39); BUN/Creatinine Ratio 39 (6-26); Bilirubin,Total 0.5 mg/dL (0.3-1.0); Blood Urea Nitrogen 19 mg/dL (6-20); Calcium 8.3 mg/dL (8.6-10.3); Carbon Dioxide 20 mEq/L (23-29); Chloride 101 mEq/L (98-107); Globulin 3.8 g/dL (2.4-3.5); Glucose 77 mg/dL (70-105); Magnesium 1.8 mg/dL (1.6-2.6); Osmolality,Calculated 281 (280-300); Phosphorous 3.5 mg/dL (2.7-4.5); Potassium 3.3 mEq/L (3.5-5.1); Sodium 135 mEq/L (136-145); Total Protein 7.2 g/dL (6.4-8.9); Troponin I 0.03 ng/mL (< 0.04); eGFR For African Americans > 60 (> 60); eGFR For Non-African Americans > 60 (> 60)
[2019-12-05] MEDS ORDERED: methylPREDNISolone 125 MG/2 ML VIAL IVP ONE (13:37)
[2019-12-05 14:16] LABS: Bacteria,Urine Few per hpf (None-Few); Bilirubin,Urine Negative (Negative); Blood,Urine Moderate (Negative); Clarity,Urine Ex.Turbid (Clear); Color,Urine Yellow (Yellow); Glucose,Urine (UA) Normal (Normal); Ketones,Urine 60 mg/dL (Negative); Leukocyte Esterase,Urine Large (Negative); Mucus,Urine Few per lpf (None-Few); Nitrite,Urine Positive (Negative); PH,Urine 6.5 pH Units (5.0-8.0); Protein,Urine 100 mg/dL (Neg-Trace); RBC,Urine TNTC per hpf (0-3); Specific Gravity,Urine 1.015 (1.010-1.025); Urobilinogen,Urine Normal (Normal); WBC,Urine TNTC per hpf (0-3)
[2019-12-05] MEDS: 0.9 % Sodium Chloride 1,000 ML IVC SCH (15:09)
[2019-12-05] MEDS: Doxycycline 100 MG in 0.9 % Sodium Chloride Mini Bag 100 ML IVPB SCH (15:09)
[2019-12-05] MEDS: Baclofen 10 MG TABLET PO SCH ×2 (16:26→20:34)
[2019-12-05] MEDS: carvediloL 6.25 MG TABLET PO SCH (17:21)
[2019-12-05] MEDS: Meropenem 1,000 MG in 0.9 % Sodium Chloride Mini Bag 100 ML IVPB SCH (17:22)
[2019-12-05] MEDS ORDERED: *HR* FentaNYL PATCH 50 MCG PATCH TD SCH (21:00)
[2019-12-06] MEDS: MethylPREDNISolone 40 MG/ML VIAL IVP SCH ×2 (00:47→07:55)
[2019-12-06] MEDS: 0.9 % Sodium Chloride 1,000 ML IVC SCH (00:48)
[2019-12-06] MEDS: Doxycycline 100 MG in 0.9 % Sodium Chloride Mini Bag 100 ML IVPB SCH ×2 (00:48→12:41)
[2019-12-06] MEDS: Meropenem 1,000 MG in 0.9 % Sodium Chloride Mini Bag 100 ML IVPB SCH ×3 (02:16→18:17)
[2019-12-06] MEDS: Gabapentin 300 MG CAPSULE PO SCH ×3 (07:53→20:55)
[2019-12-06] MEDS: carvediloL 6.25 MG TABLET PO SCH ×2 (07:53→12:48)
[2019-12-06] MEDS: Baclofen 10 MG TABLET PO SCH ×3 (07:55→20:55)
[2019-12-06] MEDS ORDERED: tiZANidine 4 MG TABLET PO PRN ×2 (08:30→09:31)
[2019-12-06 09:59] LABS: Basophils % 0.2 %; Hematocrit 28.8 % (35.3-44.9); Hemoglobin 9.2 g/dL (11.5-15.4); Immature Granulocytes % 0.3 % (0-4); Lymphocytes # 0.5 K/mcL (0.6-4.6); Lymphocytes % 4.1 %; Mean Corpuscular HGB Conc 31.9 g/dL (31.6-35.5); Mean Corpuscular Hemoglobin 29.3 pg (28.0-33.3); Mean Corpuscular Volume 91.7 fL (83.0-100.0); Mean Platelet Volume 8.9 fL (9.4-12.4); Monocytes # 0.1 K/mcL (0.0-1.3); Neutrophils # 10.9 K/mcL (1.6-8.9); Platelet Count 428 K/mcL (140-400); Red Blood Count 3.14 M/mcL (3.82-4.97); Red Cell Distribution Width 14.6 % (11.5-14.5); Segmented Neutrophils % 94.4 %
[2019-12-06 10:02] LABS: White Blood Count 11.5 K/mcL (4.3-11.1)
[2019-12-06 10:15] LABS: BUN/Creatinine Ratio 51 (6-26); Blood Urea Nitrogen 19 mg/dL (6-20); Calcium 7.4 mg/dL (8.6-10.3); Carbon Dioxide 19 mEq/L (23-29); Chloride 107 mEq/L (98-107); Glucose 266 mg/dL (70-105); Osmolality,Calculated 292 (280-300); Potassium 3.4 mEq/L (3.5-5.1); Sodium 135 mEq/L (136-145); eGFR For African Americans > 60 (> 60); eGFR For Non-African Americans > 60 (> 60)
[2019-12-06] MEDS: Doxycycline 100 MG CAPSULE PO SCH (20:54)
[2019-12-07] MEDS: Meropenem 1,000 MG in 0.9 % Sodium Chloride Mini Bag 100 ML IVPB SCH ×2 (02:18→08:44)
[2019-12-07 03:42] LABS: Hematocrit 29.2 % (35.3-44.9); Hemoglobin 9.1 g/dL (11.5-15.4); Mean Corpuscular HGB Conc 31.2 g/dL (31.6-35.5); Mean Corpuscular Hemoglobin 29.3 pg (28.0-33.3); Mean Corpuscular Volume 93.9 fL (83.0-100.0); Mean Platelet Volume 9.2 fL (9.4-12.4); Platelet Count 481 K/mcL (140-400); Red Blood Count 3.11 M/mcL (3.82-4.97); Red Cell Distribution Width 14.9 % (11.5-14.5); White Blood Count 14.7 K/mcL (4.3-11.1)
[2019-12-07 04:00] LABS: BUN/Creatinine Ratio 43 (6-26); Blood Urea Nitrogen 19 mg/dL (6-20); Calcium 7.9 mg/dL (8.6-10.3); Carbon Dioxide 21 mEq/L (23-29); Chloride 111 mEq/L (98-107); Glucose 184 mg/dL (70-105); Osmolality,Calculated 299 (280-300); Potassium 3.6 mEq/L (3.5-5.1); Sodium 141 mEq/L (136-145); eGFR For African Americans > 60 (> 60); eGFR For Non-African Americans > 60 (> 60)
[2019-12-07] MEDS: Baclofen 10 MG TABLET PO SCH ×2 (08:42→15:07)
[2019-12-07] MEDS: Doxycycline 100 MG CAPSULE PO SCH (08:43)
[2019-12-07] MEDS: carvediloL 6.25 MG TABLET PO SCH (08:43)
[2019-12-07] MEDS: Gabapentin 300 MG CAPSULE PO SCH ×2 (08:43→15:07)
[2019-12-07 15:44] VITALS: BP 110/70
[2019-12-07] MEDS ORDERED: Fosfomycin Tromethamine 3 GM Packet PO ONE (17:15)
[2019-12-07] MEDS ORDERED: *HR* Heparin 5,000 UNIT/ML VIAL SQ SCH (18:00)
== END 2019-12-07 19:15 | disposition home or self-care (01) | DRG 466 ==
LOC: 3BNU
PROVIDERS: ADMIT Family Medicine; ATTEND Student in an Organized Health Care Education/Training Program

== ENCOUNTER 2019-12-22 23:42 | Observation (INO) ==
[2019-12-23] MEDS ORDERED: 0.9 % Sodium Chloride 1,000 ML IV ONE (00:09)
[2019-12-23 01:03] LABS: Basophils # 0.1 K/mcL (0.0-0.2); Basophils % 0.7 %; Eosinophils # 0.2 K/mcL (0.0-0.6); Eosinophils % 1.6 %; Hematocrit 32.2 % (35.3-44.9); Immature Granulocytes % 0.4 % (0-4); Lymphocytes # 1.4 K/mcL (0.6-4.6); Lymphocytes % 13.5 %; Mean Corpuscular HGB Conc 31.1 g/dL (31.6-35.5); Mean Corpuscular Hemoglobin 28.1 pg (28.0-33.3); Mean Corpuscular Volume 90.4 fL (83.0-100.0); Monocytes # 0.6 K/mcL (0.0-1.3); Monocytes % 6.1 %; Platelet Count 407 K/mcL (140-400); Red Blood Count 3.56 M/mcL (3.82-4.97); Red Cell Distribution Width 14.6 % (11.5-14.5); Segmented Neutrophils % 77.7 %; White Blood Count 10.4 K/mcL (4.3-11.1)
[2019-12-23 01:24] LABS: Alanine Aminotransferase 5 Units/L (7-52); Albumin 3.5 g/dL (3.5-5.7); Albumin/Globulin Ratio 0.9 (1.1-2.2); Alkaline Phosphatase 71 Units/L (34-104); Aspartate Amino Transferase 5 Units/L (13-39); BUN/Creatinine Ratio 29 (6-26); Bilirubin,Indirect 0.3 mg/dL (0.0-1.0); Bilirubin,Total 0.3 mg/dL (0.3-1.0); Blood Urea Nitrogen 16 mg/dL (6-20); Calcium 8.7 mg/dL (8.6-10.3); Carbon Dioxide 20 mEq/L (23-29); Chloride 102 mEq/L (98-107); Globulin 3.8 g/dL (2.4-3.5); Glucose 121 mg/dL (70-105); Magnesium 1.8 mg/dL (1.6-2.6); Osmolality,Calculated 286 (280-300); Phosphorous 3.5 mg/dL (2.7-4.5); Potassium 3.2 mEq/L (3.5-5.1); Sodium 137 mEq/L (136-145); Total Protein 7.3 g/dL (6.4-8.9); Troponin I < 0.03 ng/mL (< 0.04); eGFR For African Americans > 60 (> 60); eGFR For Non-African Americans > 60 (> 60)
[2019-12-23] MEDS ORDERED: Gentamicin 80 MG in 0.9 % Sodium Chloride 100 ML IVPB ONE (02:02)
[2019-12-23 02:04] LABS: INR 1.3; Prothrombin Time 14.2 Seconds (9.4-12.1)
[2019-12-23 02:06] LABS: Activated Partial Thrombo Time 33.3 Seconds (26.0-36.0)
[2019-12-23] MEDS ORDERED: Naloxone 0.4 MG/ML INJ IVP PRN (05:25)
[2019-12-23] MEDS ORDERED: Potassium Chloride Elixir 20 MEQ/15 ML UDC PO ONE (06:29)
[2019-12-23] MEDS ORDERED: Piperacillin/Tazobactam 3.375 GM in 0.9 % Sodium Chloride Mini Bag 100 ML IVPB SCH (08:30)
[2019-12-23] MEDS: *HR* Enoxaparin 40 MG/0.4 ML SYRINGE SQ SCH (08:55)
[2019-12-23] MEDS ORDERED: Gabapentin 300 MG CAPSULE PO ONE ×2 (10:12→15:41)
[2019-12-23] MEDS: Sulfamethoxazole/Trimeth DS 1 EACH TABLET PO SCH ×2 (10:41→20:22)
[2019-12-23] MEDS: Cefepime HCl 2,000 MG in 0.9 % Sodium Chloride Mini Bag 100 ML IVPB SCH ×2 (10:42→15:33)
[2019-12-23 11:10] LABS: Bacteria,Urine Few per hpf (None-Few); Bilirubin,Urine Negative (Negative); Blood,Urine Small (Negative); Clarity,Urine Turbid (Clear); Color,Urine Light-Yellow (Yellow); Glucose,Urine (UA) Normal (Normal); Hyaline Casts,Urine Few per lpf (None Seen); Ketones,Urine 40 mg/dL (Negative); Leukocyte Esterase,Urine Large (Negative); Mucus,Urine Few per lpf (None-Few); Nitrite,Urine Negative (Negative); Protein,Urine 50 mg/dL (Neg-Trace); RBC,Urine 30-50 per hpf (0-3); Specific Gravity,Urine 1.015 (1.010-1.025); Squamous Epithelial Cell,Urine Few per hpf (None-Few); Urobilinogen,Urine Normal (Normal); WBC,Urine TNTC per hpf (0-3)
[2019-12-23] MEDS ORDERED: *HR* HYDROmorphone 4 MG TABLET PO PRN (17:51)
[2019-12-23] MEDS ORDERED: Sennosides/Docusate Sodium TABLET PO PRN (17:51)
[2019-12-23] MEDS ORDERED: *HR* LORazepam 0.5 MG TABLET PO PRN (17:51)
[2019-12-23] MEDS ORDERED: *HR* FentaNYL PATCH 50 MCG PATCH TD SCH (18:00)
[2019-12-23] MEDS ORDERED: Acetaminophen 325 MG TABLET PO PRN (20:09)
[2019-12-23] MEDS: Baclofen 10 MG TABLET PO SCH (20:26)
[2019-12-23] MEDS: Gabapentin 300 MG CAPSULE PO SCH (20:29)
[2019-12-24] MEDS: Cefepime HCl 2,000 MG in 0.9 % Sodium Chloride Mini Bag 100 ML IVPB SCH ×4 (00:19→23:20)
[2019-12-24 02:40] LABS: Basophils # 0.1 K/mcL (0.0-0.2); Basophils % 0.4 %; Eosinophils # 0.3 K/mcL (0.0-0.6); Eosinophils % 1.7 %; Hematocrit 31.7 % (35.3-44.9); Immature Granulocytes % 0.5 % (0-4); Lymphocytes # 0.4 K/mcL (0.6-4.6); Lymphocytes % 2.4 %; Mean Corpuscular HGB Conc 31.5 g/dL (31.6-35.5); Mean Corpuscular Hemoglobin 28.7 pg (28.0-33.3); Mean Corpuscular Volume 90.8 fL (83.0-100.0); Mean Platelet Volume 10.1 fL (9.4-12.4); Monocytes # 0.6 K/mcL (0.0-1.3); Monocytes % 3.7 %; Platelet Count 302 K/mcL (140-400); Red Blood Count 3.49 M/mcL (3.82-4.97); Red Cell Distribution Width 14.7 % (11.5-14.5); Segmented Neutrophils % 91.3 %
[2019-12-24 02:43] LABS: Neutrophils # 15.3 K/mcL (1.6-8.9); White Blood Count 16.8 K/mcL (4.3-11.1)
[2019-12-24 03:07] LABS: BUN/Creatinine Ratio 22 (6-26); Blood Urea Nitrogen 16 mg/dL (6-20); Calcium 8.1 mg/dL (8.6-10.3); Carbon Dioxide 18 mEq/L (23-29); Chloride 106 mEq/L (98-107); Glucose 104 mg/dL (70-105); Osmolality,Calculated 283 (280-300); Potassium 4.1 mEq/L (3.5-5.1); Sodium 136 mEq/L (136-145); eGFR For African Americans > 60 (> 60); eGFR For Non-African Americans > 60 (> 60)
[2019-12-24] MEDS: Gabapentin 300 MG CAPSULE PO SCH ×4 (03:14→21:35)
[2019-12-24] MEDS: *HR* Enoxaparin 40 MG/0.4 ML SYRINGE SQ SCH (03:14)
[2019-12-24] MEDS: Sulfamethoxazole/Trimeth DS 1 EACH TABLET PO SCH ×2 (09:37→21:34)
[2019-12-24] MEDS: Baclofen 10 MG TABLET PO SCH ×3 (09:41→21:36)
[2019-12-24] MEDS: Fluticasone Propionate Nasal 50 MCG/SPRAY BOTTLE NS SCH (11:44)
[2019-12-24] MEDS: Desitin (Zinc Oxide) 56 GM TUBE TP SCH (21:37)
[2019-12-24] MEDS: 0.9 % Sodium Chloride 500 ML IVC SCH (23:19)
[2019-12-24] MEDS: Ringers Solution, Lactated 1,000 ML IVC SCH (23:52)
[2019-12-24] MEDS ORDERED: methocarbamoL 500 MG TABLET PO ONE (23:59)
[2019-12-25] MEDS: 0.9 % Sodium Chloride 500 ML IVC SCH (00:11)
[2019-12-25 01:13] LABS: Basophils % 0.4 %; Eosinophils # 0.4 K/mcL (0.0-0.6); Eosinophils % 8.2 %; Hematocrit 26.3 % (35.3-44.9); Immature Granulocytes % 0.2 % (0-4); Lymphocytes # 0.2 K/mcL (0.6-4.6); Lymphocytes % 4.4 %; Mean Corpuscular HGB Conc 31.6 g/dL (31.6-35.5); Mean Corpuscular Hemoglobin 28.6 pg (28.0-33.3); Mean Corpuscular Volume 90.7 fL (83.0-100.0); Mean Platelet Volume 9.2 fL (9.4-12.4); Monocytes # 0.1 K/mcL (0.0-1.3); Monocytes % 2.6 %; Neutrophils # 4.2 K/mcL (1.6-8.9); Platelet Count 225 K/mcL (140-400); Red Cell Distribution Width 14.7 % (11.5-14.5); Segmented Neutrophils % 84.2 %
[2019-12-25] MEDS: Ondansetron 4 MG/2 ML VIAL IVP PRN ×2 (01:13→09:13)
[2019-12-25 01:15] LABS: Hemoglobin 8.3 g/dL (11.5-15.4)
[2019-12-25 01:39] LABS: BUN/Creatinine Ratio 32 (6-26); Blood Urea Nitrogen 25 mg/dL (6-20); Calcium 7.8 mg/dL (8.6-10.3); Carbon Dioxide 18 mEq/L (23-29); Chloride 108 mEq/L (98-107); Glucose 100 mg/dL (70-105); Osmolality,Calculated 286 (280-300); Sodium 136 mEq/L (136-145); eGFR For African Americans > 60 (> 60); eGFR For Non-African Americans > 60 (> 60)
[2019-12-25] MEDS ORDERED: Potassium Chloride 40 MEQ, Lidocaine 1% 2 ML in 0.9 % Sodium Chloride 500 ML IVPB ONE (02:30)
[2019-12-25] MEDS: Gabapentin 300 MG CAPSULE PO SCH ×4 (02:47→20:31)
[2019-12-25] MEDS: *HR* Enoxaparin 40 MG/0.4 ML SYRINGE SQ SCH (06:23)
[2019-12-25] MEDS: Cefepime HCl 2,000 MG in 0.9 % Sodium Chloride Mini Bag 100 ML IVPB SCH ×3 (08:55→23:17)
[2019-12-25] MEDS: Fluticasone Propionate Nasal 50 MCG/SPRAY BOTTLE NS SCH ×2 (08:55→08:57)
[2019-12-25] MEDS: Sulfamethoxazole/Trimeth DS 1 EACH TABLET PO SCH ×2 (08:56→20:30)
[2019-12-25] MEDS: Baclofen 10 MG TABLET PO SCH ×3 (08:58→20:30)
[2019-12-25] MEDS: Desitin (Zinc Oxide) 56 GM TUBE TP SCH ×2 (09:00→20:33)
[2019-12-25] MEDS ORDERED: 0.9 % Sodium Chloride 500 ML IVC ONE (11:45)
[2019-12-25] MEDS: Ringers Solution, Lactated 1,000 ML IVC SCH (19:20)
[2019-12-26] MEDS: Gabapentin 300 MG CAPSULE PO SCH ×2 (03:33→09:12)
[2019-12-26 04:06] LABS: Basophils % 0.4 %; Eosinophils # 0.7 K/mcL (0.0-0.6); Eosinophils % 13.4 %; Hematocrit 26.2 % (35.3-44.9); Hemoglobin 8.2 g/dL (11.5-15.4); Immature Granulocytes % 0.4 % (0-4); Lymphocytes # 0.6 K/mcL (0.6-4.6); Lymphocytes % 12.5 %; Mean Corpuscular HGB Conc 31.3 g/dL (31.6-35.5); Mean Corpuscular Hemoglobin 28.3 pg (28.0-33.3); Mean Corpuscular Volume 90.3 fL (83.0-100.0); Mean Platelet Volume 9.3 fL (9.4-12.4); Monocytes # 0.3 K/mcL (0.0-1.3); Monocytes % 5.3 %; Neutrophils # 3.5 K/mcL (1.6-8.9); Platelet Count 295 K/mcL (140-400); Red Cell Distribution Width 15.1 % (11.5-14.5); White Blood Count 5.1 K/mcL (4.3-11.1)
[2019-12-26 04:14] LABS: BUN/Creatinine Ratio 34 (6-26); Blood Urea Nitrogen 17 mg/dL (6-20); Carbon Dioxide 20 mEq/L (23-29); Chloride 108 mEq/L (98-107); Glucose 83 mg/dL (70-105); Osmolality,Calculated 283 (280-300); Potassium 4.5 mEq/L (3.5-5.1); Sodium 136 mEq/L (136-145); eGFR For African Americans > 60 (> 60); eGFR For Non-African Americans > 60 (> 60)
[2019-12-26] MEDS: *HR* Enoxaparin 40 MG/0.4 ML SYRINGE SQ SCH (05:11)
[2019-12-26 06:54] VITALS: BP 87/48
[2019-12-26] MEDS: Baclofen 10 MG TABLET PO SCH (09:12)
[2019-12-26] MEDS: Desitin (Zinc Oxide) 56 GM TUBE TP SCH (09:12)
[2019-12-26] MEDS: Cefepime HCl 2,000 MG in 0.9 % Sodium Chloride Mini Bag 100 ML IVPB SCH (09:12)
[2019-12-26] MEDS: Fluticasone Propionate Nasal 50 MCG/SPRAY BOTTLE NS SCH (11:13)
== END 2019-12-26 13:20 | disposition home health service (06) ==
LOC: EMEROOARM 23:42 → 3BNU 23:42 → SUATTDRO 12-23 03:43 → 3BNU 12-23 04:03
PROVIDERS: ADMIT Internal Medicine; ATTEND Internal Medicine